=== PATIENT | female | born 1955 | race Caucasian/White ===

== ENCOUNTER 2016-07-16 11:40 | Observation (INO) ==
[2016-07-16] MEDS ORDERED: Lidocaine -MPF 1% 2 ML VIAL ID ONE (12:10)
[2016-07-16] MEDS ORDERED: cefOXitin 2,000 MG in D5% in Water (Mini-Bag+) 100 ML IVPB ONE (12:10)
[2016-07-16] MEDS ORDERED: Ringers Solution, Lactated 1,000 ML IVC SCH ×2 (12:15→14:45)
--- NOTE | 2016-07-16 12:30 | Anesthesia Evaluation PreOp ---
Date of Encounter: 07/16/16 Time of Encounter: 12:28 - Past History Planned Operation: Robotic Lap. 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 HX Other Medical History: GERD, Other (Stomach Ulcer) Anesthesia History: No Prior Anesthetic Complications, Past Anesthesia ( Colonoscopy, EGD) : No Alcohol Use: occasionally Drug use: none Medications and Allergies Pantoprazole Sodium [Protonix] 40 mg PO BID 04/09/16 [History] Venlafaxine XR (24 HR) [Effexor XR] 150 mg PO DAILY 04/09/16 [History] Acetaminophen [Tylenol Arthritis] 650 mg PO BID 07/16/16 [History] Allergies No Known Allergies Allergy (Verified 07/16/16 12:36) - Meds/Allergy Pre-op Review Medications Reviewed: Yes Allergies Reviewed: Yes Beta Blockers on Current Med List: No Anesthesia Results - Labs Laboratory Tests 03/26/16 07/08/16 07/08/16 20:12 09:02 09:02 WBC 5.2 Hgb 12.9 Hct 39.9 Plt Count 239 Sodium 139 Potassium 4.6 H Chloride 104 Carbon Dioxide 23 BUN 25 H Creatinine 0.73 - Imaging EKG: image reviewed (SR) Anesthesia Exam O2 Sat Height 1.63 m Height 1.63 m Weight 82.1 kg Weight 82.1 kg O2 Sat by Pulse Oximetry 99 Vital Signs Temp Pulse Resp BP Pulse Ox 98.3 F 66 16 116/57 99 07/16/16 12:13 07/16/16 12:13 07/16/16 12:13 07/16/16 12:13 07/16/16 12:13 Height: 5'4'' Weight: 181# NPO (# of Hours): > 8 hrs Pain Scale: 0 Pain Scale Used: Numeric (1 - 10) - HEENT Pupil (Motor): Pupils equal, EOMI Mallampati: III Teeth: Normal Oral Opening: Greater than 3 - BOTTOM PRECIPITATOR OPERATOR LOC: Oriented BOTTOM PRECIPITATOR OPERATOR Motor: Normal RUE, Normal LUE, Normal RLE, Normal LLE, Normal Face BOTTOM PRECIPITATOR OPERATOR Sensory: Normal: RUE, LUE, RLE, LLE, Face - Cardiac Rhythm: Regular Murmur: None JVD: No Carotid Bruit: No - Pulmonary Breath Sounds: bilateral Clear Respiratory Effort: Symmetrical Anesthesia Assess/Plan ASA Score: 2 Modified Gilroy Scale for Level of Consciousness: Cooperative, oriented, and tranquil Anesthetic Plan: General Autologous Blood: Yes Monitoring Plan: Standard Monitors Recovery Plan: PACU
--- NOTE | 2016-07-16 12:52 | History & Physical Report ---
Date of Encounter: 07/16/16 Time of Encounter: 12:52 24 Hour HP Update - Instructions Instructions: If the History and Physical is less than 30 days old and was completed prior to A.M. admission and or procedure and has NOT been updated on calendar day of procedure please complete this update prior to performing procedure. - Update Patient reports changes in Medical Condition: No Changes in examination, assessment, or condition: No Changes in Medication: No Preop tests/diagnostics Reviewed: Yes Pre-Op MRSA Screen: Negative Surgery Remains Indicated: Yes Consent for Planned Operative Procedure(s) Verified: Yes - Pre-Operative Checklist Preoperative Checklist Indicated: No Prophylactic Antibiotic Ordered: Yes Home Medications Include Beta Sumanth: No Beta Sumanth Taken Today (Day of Surgery): No Beta Sumanth Taken Yesterday (Day Prior to Surgery): No Is VTE Prophylaxis Indicated?: NO
[2016-07-16] MEDS ORDERED: *HR* Midazolam HCl 2 MG/2 ML VIAL ONE (14:40)
[2016-07-16] MEDS ORDERED: *HR* FentaNYL (PF) 100 MCG/2 ML VIAL ONE ×2 (14:40→15:40)
[2016-07-16] MEDS ORDERED: *HR* Propofol 200 MG/20 ML VIAL IVP ONE (14:40)
[2016-07-16] MEDS ORDERED: Lidocaine -MPF 2% 2 ML VIAL ONE (14:40)
[2016-07-16] MEDS ORDERED: *HR* Rocuronium Bromide 50 MG/5 ML VIAL ONE (14:40)
[2016-07-16] MEDS ORDERED: Dexamethasone 4 MG/ML VIAL ONE (14:40)
[2016-07-16] MEDS ORDERED: Lidocaine -MPF 4% 5 ML AMPUL ONE (14:40)
[2016-07-16] MEDS ORDERED: Ondansetron 4 MG/2 ML VIAL ONE (14:40)
[2016-07-16] MEDS ORDERED: *HR* Succinylcholine 200 MG/10 ML VIAL IVP ONE (14:41)
[2016-07-16] MEDS ORDERED: *HR* Promethazine 25 MG/ML VIAL IVP PRN (14:44)
[2016-07-16] MEDS ORDERED: Ondansetron 4 MG/2 ML VIAL IVP ONE (14:44)
[2016-07-16] MEDS ORDERED: *HR* HYDROmorphone (PF) 1 MG/ML SYRINGE IVP PRN (14:44)
[2016-07-16] MEDS ORDERED: *HR* Labetalol 100 MG/20 ML MDV IVP PRN (14:44)
[2016-07-16] MEDS ORDERED: Ketorolac 30 MG/ML VIAL ONE (14:48)
[2016-07-16] MEDS ORDERED: EPHEDrine 50 MG/ML VIAL ONE (15:13)
[2016-07-16] MEDS ORDERED: Neostigmine Methylsulfate 3 MG/3 ML SYRINGE ONE (15:38)
[2016-07-16] MEDS ORDERED: *HR* Labetalol 20 MG/4 ML SYRINGE IVP ONE (16:31)
[2016-07-16] MEDS ORDERED: *HR* HYDROmorphone 2 MG/ML SYRINGE ONE (16:49)
--- NOTE | 2016-07-16 16:54 | Operative Note ---
Date of procedure: 07/16/16 Pre-op diagnosis: GERD, hiatal hernia Post-op diagnosis: same Procedure: Robot assisted laparoscopic Toupet Anesthesia: MONTSE Surgeon: Vasile Hein Marketing Communication Manager: Indira Redding Condition: stable Disposition: PACU Procedure in Detail: Date of surgery: 07/16/16 After properly identifying the patient, the patient was brought to the operating room and placed in supine position. After proper IV sedation was achieved followed by general endotracheal intubation, the patient's abdomen was prepped and draped in the normal sterile fashion. A timeout was performed noting the patient's name and procedure to be performed. A 15 blade scalpel was used to make an incision 1 cm superior and 1 cm to the left of the umbilicus. A 12 mm Visiport was used to dissect through the subcutaneous tissue , external and internal oblique fascia, and transversalis abdominous fascia until the abdomen was entered. A laparoscopic camera was placed to the port which showed no injury to the intra-abdominal organs upon entry. The abdomen was insufflated with carbon dioxide and the da Eliecer robot was brought towards the operative field after the patient was placed in a reverse Trendelenburg position. The robot was then connected and intra-abdominal visualization determine the best location for the remaining ports. A left upper quadrant 8 mm port, left lateral 8 mm port, right upper quadrant 8 mm port, and right lateral 5 mm port was then placed under direct visualization. The liver was retracted superiorly to allow for visualization of the hiatus. The lesser omentum overlying the hiatus was dissected with a laparoscopic LigaSure. Following this the greater curvature was examined and the omentum was dissected off the greater omentum from the incisura up towards the cardia of the stomach with the laparoscopic vessel sealer. The short gastrics were identified and were also transected with a laparoscopic vessel sealer. The stomach appeared to be somewhat redundant at the hiatus and it was difficult to initially determine the location of the right cassandra and left cassandra of the diaphragm from the stomach. After careful dissection the right cassandra of the diaphragm was identified which allowed for dissection of the adhesions in the hiatus to the proximal stomach. This was performed by blunt dissection and utilization of the vessel sealer. This was carried from the left to the right side of the stomach/hiatus allowing for freeing of the left cassandra of the diaphragm from the surrounding stomach and esophagus. Dissection was carried out circumferentially and posteriorly around the stomach and esophagus as well with blunt dissection. The decision was made to go ahead and approximate the posterior cassandra of the diaphragm after a 50-Portuguese bougie was advanced through the esophagus into the stomach. The cassandra of the diaphragm were approximated with interrupted #1 Ethibond suture 2. The decision was then made to create a 270 degree wrap ( based on the manometry finding showing some mild peristalsis abnormality of the esophagus). The fundus of the stomach was posteriorly wrapped around the GE junction and imbricated to the GE junction with interrupted 2-0 Ethibond sutures on the left and right sides 2. After this was performed the bougie was removed and the left upper quadrant was irrigated copiously with normal saline solution. All ports are then removed from the abdomen after the abdomen was desufflated. The 12 mm subcutaneous tissue was reapproximated with an 0 Vicryl suture and the epidermal and dermal layers for the remaining incisions were closed with 4- 0 Monocryl sutures. Needle, sponge, and instrument counts were correct 2 and the incisions were covered with Steri-Strips and Band-Aids. The patient was aroused from IV sedation, extubated in the operating room without complication, and transported to the recovery room in stable condition.
--- NOTE | 2016-07-16 17:38 | Anesthesia Evaluation Post Op ---
Date of Encounter: 07/16/16 Time of Encounter: 17:37 - Vital Signs Vital Signs: Vital Signs/O2 Sat, Most Current Temp Pulse Resp BP Pulse Ox 97.4 F L 67 18 132/71 93 07/16/16 17:07 07/16/16 17:27 07/16/16 17:27 07/16/16 17:27 07/16/16 17:27 - Lungs Lungs: Clear Ascult./Percussion - Airway Airway: Non-obstructed - Cardiovascular Regular Rate - Mental Status Mental Status: Alert & Oriented, Answers Appropriately - Pain Pain Scale: 4 Pain Scale used: Numeric (1 - 10) - Nausea Vomiting Nausea Vomiting: Not Present - Hydration Hydration: NPO, Has not voided - Discharge PostOp Status: Transfer Patient to floor
[2016-07-16] MEDS: 0.9 % Sodium Chloride 1,000 ML IVC SCH (18:18)
[2016-07-16] MEDS: *HR* HYDROmorphone (PF) 1 MG/ML SYRINGE IVP PRN ×2 (18:19→20:19)
[2016-07-16] MEDS: Ondansetron 4 MG/2 ML VIAL IVP PRN (18:19)
[2016-07-16] MEDS: cefOXitin 1,000 MG in D5% in Water (Mini-Bag+) 100 ML IVPB SCH (22:46)
[2016-07-17] MEDS: *HR* HYDROmorphone (PF) 1 MG/ML SYRINGE IVP PRN ×2 (02:57)
[2016-07-17] MEDS: Ondansetron 4 MG/2 ML VIAL IVP PRN ×2 (02:58→09:16)
[2016-07-17] MEDS: 0.9 % Sodium Chloride 1,000 ML IVC SCH (05:13)
[2016-07-17] MEDS ORDERED: *HR* Promethazine 25 MG/ML VIAL IVP ONE (05:18)
[2016-07-17] MEDS: cefOXitin 1,000 MG in D5% in Water (Mini-Bag+) 100 ML IVPB SCH ×2 (05:57→15:55)
[2016-07-17 06:34] LABS: Basophils % 0.2 %; Hematocrit 35.4 % (35.3-44.9); Hemoglobin 11.8 g/dL (11.5-15.4); Immature Granulocytes % 0.7 % (0-4); Lymphocytes # 0.6 K/mcL (0.6-4.6); Lymphocytes % 4.6 %; Mean Corpuscular HGB Conc 33.3 g/dL (31.6-35.5); Mean Corpuscular Hemoglobin 31.1 pg (28.0-33.3); Mean Corpuscular Volume 93.2 fL (83.0-100.0); Mean Platelet Volume 10.4 fL (9.4-12.4); Monocytes % 7.4 %; Neutrophils # 11.5 K/mcL (1.6-8.9); Platelet Count 202 K/mcL (140-400); Red Cell Distribution Width 13.3 % (11.5-14.5); Segmented Neutrophils % 87.1 %
[2016-07-17 06:45] LABS: BUN/Creatinine Ratio 15 (6-26); Blood Urea Nitrogen 11 mg/dL (7-20); Calcium 9.2 mg/dL (8.6-10.8); Carbon Dioxide 24 mEq/L (19-29); Chloride 105 mEq/L (98-109); Glucose 153 mg/dL (70-99); Osmolality,Calculated 288 (280-300); Potassium 4.1 mEq/L (3.5-4.5); Sodium 138 mEq/L (136-145); eGFR For African Americans > 60 (> 60); eGFR For Non-African Americans > 60 (> 60)
[2016-07-17] MEDS: Venlafaxine XR (24 HR) 150 MG CAP.ER.24H PO SCH (09:18)
[2016-07-17] MEDS: Pantoprazole 40 MG VIAL IVP SCH (09:18)
[2016-07-17] MEDS ORDERED: *HR* Promethazine 25 MG/ML VIAL IVP PRN (09:58)
[2016-07-17] MEDS ORDERED: Ondansetron 4 MG/2 ML VIAL IVP PRN (09:59)
--- NOTE | 2016-07-17 10:03 | General Surgery Progress Note ---
Date of Encounter: 07/17/16 Time of Encounter: 10:00 - Assessment and Plan (1) GERD (gastroesophageal reflux disease) Current Visit: Yes Status: Chronic POD #1 Robot assisted laparoscopic Toupet with Dr. Hein Continue clear liquids as tolerated IV fluids Supportive care/pain control Increase activity as tolerated IS every 1 hour while awake PPI therapy daily Qualifiers: Esophagitis presence: esophagitis presence not specified Qualified Code(s) : K21.9 - Gastro-esophageal reflux disease without esophagitis (2) Hiatal hernia Current Visit: Yes Status: Chronic POD #1 Robot assisted laparoscopic Toupet with Dr. Hein Continue clear liquids as tolerated IV fluids Supportive care/pain control Increase activity as tolerated IS every 1 hour while awake PPI therapy daily (3) Nausea and vomiting Current Visit: Yes Status: Acute Supportive care Alternate Zofran and Phenergan as needed IV fluids Qualifiers: Vomiting type: unspecified Vomiting Intractability: non-intractable Qualified Code(s): R11.2 - Nausea with vomiting, unspecified (4) DVT prophylaxis Current Visit: Yes Status: Acute EPCDs to bilateral lower extremities for DVT prophylaxis Ambulate hallways TID with assistance Subjective Patient reports: still having pain (surgical), voiding w/o difficulty (not recorded, but patient states that she has been voiding without problems), no flatus, no bowel movement, nausea, vomiting, afebrile Objective Vital Signs - Last 8 Hours Temp Pulse Resp BP Pulse Ox 07/17/16 03:26 98.2 F 75 20 106/64 94 07/17/16 02:59 97.6 F 85 20 167/82 96 Intake and Output 07/16/16 07/17/16 07/17/16 23:59 07:59 15:59 Intake Total 100 / 100 1600 / 1600 0 / 0 Output Total 150 / 150 0 / 0 Balance -50 / -50 1600 / 1600 0 / 0 Intake: IV Fluids 100 / 100 1100 / 1100 0.9 % Sodium Chloride 1, 1000 / 1000 000 ML @ 100 mls/hr IVC . Q10H STACEY Rx#:[id number] Mefoxin 1,000 MG In 100 / 100 100 / 100 Dextrose 5% (Minibag+) 100 ML 100 ML @ 200 mls/ hr IVPB Q8H STACEY Rx#: [id number] Oral 500 / 500 0 / 0 Output: Urine 0 / 0 Estimated Blood Loss 150 / 150 Other: Meal Breakfast Percent of Meal Consumed 0% # Voids 1 1 Weight 83.1 kg Patient Weight 07/17/16 23:59 Weight 83.1 kg - General physical appearance well developed, well nourished, moderate distress - Eyes normal ocular movement - ENT normal mucosa, atraumatic, normocephalic - Neck Neck exam: trachea midline - Respiratory normal respiratory effort, clear to auscultation - Cardiovascular Cardiovascular exam: Present: RRR - Abdomen Abdomen: Present: bowel sounds present, soft, distended (mildly), tender ( expected post-operative tenderness) - Incision Incision: Present: clean and dry, intact - Neurologic CN 2-12 grossly intact - Psychiatric oriented to time, oriented to person, oriented to place, speech is normal, memory intact - Labs 07/17/16 06:05 07/17/16 06:05 Diabetes panel 07/17/16 Range/Units 06:05 Sodium 138 (136-145) mEq/L Potassium 4.1 (3.5-4.5) mEq/L Chloride 105 (98-109) mEq/L Carbon Dioxide 24 (19-29) mEq/L BUN 11 (7-20) mg/dL Creatinine 0.72 (0.57-1.11) mg/dL Glucose 153 H (70-99) mg/dL Calcium 9.2 (8.6-10.8) mg/dL Calcium panel 07/17/16 Range/Units 06:05 Calcium 9.2 (8.6-10.8) mg/dL Pituitary panel 07/17/16 Range/Units 06:05 Sodium 138 (136-145) mEq/L Potassium 4.1 (3.5-4.5) mEq/L Chloride 105 (98-109) mEq/L Carbon Dioxide 24 (19-29) mEq/L BUN 11 (7-20) mg/dL Creatinine 0.72 (0.57-1.11) mg/dL Glucose 153 H (70-99) mg/dL Calcium 9.2 (8.6-10.8) mg/dL Adrenal panel 07/17/16 Range/Units 06:05 Sodium 138 (136-145) mEq/L Potassium 4.1 (3.5-4.5) mEq/L Chloride 105 (98-109) mEq/L Carbon Dioxide 24 (19-29) mEq/L BUN 11 (7-20) mg/dL Creatinine 0.72 (0.57-1.11) mg/dL Glucose 153 H (70-99) mg/dL Calcium 9.2 (8.6-10.8) mg/dL - VTE Documentation of Mechanical Device: Intermittent pneumatic compression device Consult Discharge Plan - Plan Referrals: Vasile Hein MD [Partnered Physician] - 07/31/16 9:30 am Madelin Viera MD [Primary Care Provider] - - Attending Attestation I examined this patient and my medical decision-making was reviewed with the TRAILER STEERER/PA/Advanced Practice Nurse/Resident Physician. I agree with the documented findings, disposition and treatment plan as described except to the extent set forth below.
[2016-07-17] MEDS ORDERED: *HR* Morphine 2 MG/ML SYRINGE IVP PRN (12:46)
[2016-07-17] MEDS: *HR* HYDROcodone/Acet 5/325 mg TABLET PO PRN (15:55)
[2016-07-18 03:39] LABS: Basophils % 0.1 %; Eosinophils % 0.1 %; Hematocrit 35.3 % (35.3-44.9); Hemoglobin 11.5 g/dL (11.5-15.4); Immature Granulocytes % 0.5 % (0-4); Lymphocytes % 11.3 %; Mean Corpuscular HGB Conc 32.6 g/dL (31.6-35.5); Mean Corpuscular Hemoglobin 30.3 pg (28.0-33.3); Mean Corpuscular Volume 93.1 fL (83.0-100.0); Mean Platelet Volume 9.8 fL (9.4-12.4); Monocytes % 10.6 %; Neutrophils # 7.1 K/mcL (1.6-8.9); Platelet Count 207 K/mcL (140-400); Red Blood Count 3.79 M/mcL (3.82-4.97); Red Cell Distribution Width 13.5 % (11.5-14.5); Segmented Neutrophils % 77.4 %
[2016-07-18 04:06] LABS: BUN/Creatinine Ratio 14 (6-26); Blood Urea Nitrogen 10 mg/dL (7-20); Calcium 9.1 mg/dL (8.6-10.8); Carbon Dioxide 27 mEq/L (19-29); Chloride 107 mEq/L (98-109); Glucose 106 mg/dL (70-99); Osmolality,Calculated 289 (280-300); Potassium 3.5 mEq/L (3.5-4.5); Sodium 140 mEq/L (136-145); eGFR For African Americans > 60 (> 60); eGFR For Non-African Americans > 60 (> 60)
[2016-07-18] MEDS: Pantoprazole 40 MG VIAL IVP SCH (06:21)
[2016-07-18] MEDS: Venlafaxine XR (24 HR) 150 MG CAP.ER.24H PO SCH (07:29)
[2016-07-18] MEDS: *HR* HYDROcodone/Acet 5/325 mg TABLET PO PRN (07:31)
[2016-07-18 10:27] VITALS: BP 126/80
--- NOTE | 2016-07-18 11:44 | Discharge Summary ---
Date of Encounter: 07/18/16 Time of Encounter: 11:40 - Discharge Diagnosis (1) GERD (gastroesophageal reflux disease) Priority: Primary Status: Chronic Qualifiers: Esophagitis presence: esophagitis presence not specified Qualified Code(s) : K21.9 - Gastro-esophageal reflux disease without esophagitis (2) Hiatal hernia Priority: Primary Status: Chronic - Discharge Medications Prescriptions: HYDROcodone/Acet 10/325 mg [[place] 10-325 mg] 1 tab PO Q6HR PRN #39 tab PRN Reason: Pain Ondansetron [Zofran] 4 mg PO Q6HR PRN #20 tablet PRN Reason: Nausea Home Medications: Pantoprazole Sodium [Protonix] 40 mg PO BID 04/09/16 [History] Venlafaxine XR (24 HR) [Effexor Xr] 150 mg PO DAILY 04/09/16 [History] Acetaminophen [Tylenol Arthritis] 650 mg PO BID 07/16/16 [History] Allergies/Adverse Reactions: Allergies No Known Allergies Allergy (Verified 07/16/16 12:36) General Surgery Exam Initial Vital Signs Temp Pulse Resp BP Pulse Ox 98.3 F 66 16 116/57 99 07/16/16 12:13 07/16/16 12:13 07/16/16 12:13 07/16/16 12:13 07/16/16 12:13 - Eyes PERRL, normal ocular movement - Abdomen Abdomen general surgery: Present: soft, tender (Mild incisional tenderness.) - Neurologic Present: CN 2-12 grossly intact - Psychiatric Psychiatric general surgery: Present: A&Ox3 Date of admission: 07/17/16 16:39 Primary care physician: Madelin Viera Discharging clinician: Vasile Hein Anticipated date of discharge: 07/18/16 - Patient Status Disposition: Home, Self-Care Condition: Good Overall status at discharge: patient is progressing back to baseline - Discharge Instructions Follow Up With: Vasile Hein MD [Partnered Physician] - 07/31/16 9:30 am - Diet and Activity Diet: other (Clears) - Hospital Course Hospital course: Ms. Landeros is a 61 year old female history of GERD who underwent a robot- assisted Toupet duplication on 07/16/2016 without difficult. On the first postoperative day she underwent an upper GI which showed no evidence of a leak and flow into the stomach and small bowel. The cause of headache and nausea and vomiting as well as pain she stated an additional day for observation. She was able to tolerate clears without any further nausea or vomiting and was able to ambulate without difficulty. Due to her overall improvement she was discharged home on 07/18/2016 with instructions to follow-up in 2 weeks. Time spent discussing smoking cessation with patient: 3 to 10 minutes - Time Spent with Patient Total time spent providing and/or coordinating discharge services: Less than 30 minutes Specific discharge activities: No heavy lifting greater than 15lbs for two weeks. Labs on day of discharge: Labs from last 24 hours 07/18/16 07/18/16 03:31 03:31 WBC 9.2 RBC 3.79 L Hgb 11.5 Hct 35.3 MCV 93.1 MCH 30.3 MCHC 32.6 RDW 13.5 Plt Count 207 MPV 9.8 Immature Gran % 0.5 Seg Neutrophils % 77.4 Lymphocytes % 11.3 Monocytes % 10.6 Eosinophils % 0.1 Basophils % 0.1 Neutrophils # 7.1 Lymphocytes # 1.0 Monocytes # 1.0 Eosinophils # 0.0 Basophils # 0.0 Sodium 140 Potassium 3.5 Chloride 107 Carbon Dioxide 27 BUN 10 Creatinine 0.69 Est GFR ( Amer) > 60 Est GFR (Non-Af Amer) > 60 BUN/Creatinine Ratio 14 Glucose 106 H Calculated Osmolality 289 Calcium 9.1 - Impressions ITS Impressions Upper GI Series 07/17/16 06:55 IMPRESSION: 1. No extravasated oral contrast to suggest leak. 2. Delayed passage through the esophagogastric junction may represent postsurgical edema. 3. There appears to be a distal esophageal diverticulum. D/ / Lc Jaramillo MD / Lc Jaramillo MD Interpreting Provider: Lc Jaramillo MD
== END 2016-07-18 13:19 | disposition home or self-care (01) ==
LOC: SAMDAY 11:40 → 3ANU 11:40 → SAMDAY 07-17 14:42 → 3ANU 07-17 15:39
PROVIDERS: ADMIT Surgery; ATTEND Surgery

== ENCOUNTER 2016-08-15 05:22 | Observation (INO) ==
[2016-08-15] MEDS ORDERED: 0.9 % Sodium Chloride 1,000 ML IVC ONE (05:46)
[2016-08-15] MEDS ORDERED: Ketorolac 30 MG/ML VIAL IVP ONE (05:46)
--- NOTE | 2016-08-15 06:06 | Emergency Department Note ---
Disposition Clinical Impression: Abdominal pain Qualifiers: Abdominal location: right lower quadrant Qualified Code(s): R10.31 - Right lower quadrant pain Disposition: Still a Patient Condition: Undetermined Referrals: NO,PCP [Primary Care Provider] - Forms: Work/School Release, ED Satisfaction Letter Abdominal Pain HPI - General Chief Complaint: ED General Medical Stated Complaint: right groin pain Time Seen by Provider: 08/15/16 05:39 Source: patient Mode of arrival: private vehicle Limitations: no limitations Nursing Notes Reviewed: Yes Vital Signs Reviewed: Yes - History of Present Illness Pt Subjective Complaint: abdominal pain Onset (ago): day(s) (2) Consistency: constant Location: RLQ Pain Severity: severe Pain Scale: 10 Quality: sharp Radiation: none Migration to: no migration Improves with: nothing Worsens with: other (palpation) Context: recent surgery/procedure (Catracho Fundoplication 4 weeks ago - no complications) Associated symptoms: Denies: nausea, vomiting, diarrhea, fever, chills, constipation, dysuria, hematemesis, hematochezia, melena, hematuria, anorexia, syncope, other Treatments prior to arrival: none - Related Data Home Medications Medication Instructions Recorded Confirmed Pantoprazole Sodium [Protonix] 40 mg PO BID 04/09/16 07/16/16 Venlafaxine XR (24 HR) [Effexor Xr] 150 mg PO DAILY 04/09/16 07/16/16 Acetaminophen [Tylenol Arthritis] 650 mg PO BID 07/16/16 07/16/16 Previous Rx's Medication Instructions Recorded HYDROcodone/Acet 10/325 mg [[place] 1 tab PO Q6HR PRN #39 tab 07/18/16 10-325 mg] Ondansetron ODT [Zofran ODT] 4 mg SL Q6HR PRN #20 tab.rapdis 07/18/16 Allergies Allergy/AdvReac Type Severity Reaction Status Date / Time No Known Allergies Allergy Verified 08/15/16 05:31 All systems ED: reviewed and negative except as stated. Constitutional: Denies: fever, chills, weakness, night sweats Cardiovascular: Denies: chest pain, palpitations, dyspnea on exertion Gastrointestinal: Reports: as per HPI, abdominal pain. Denies: nausea, vomiting , diarrhea, constipation, hematemesis, melena, hematochezia Genitourinary: Denies: urgency, dysuria, frequency, hematuria, discharge Musculoskeletal: Denies: back pain, joint swelling, arthralgia Integumentary: Denies: rash, lesions, pruritus Neurological: Denies: headache Hematological/Lymphatic: Denies: easy bleeding, easy bruising Abdominal Pain PMH - Past Medical History Medical history: Reports: GERD Female Surgical History: Reports: other FINISHER ACCORDION history: Reports: no FINISHER ACCORDION history Psychiatric history: Reports: depression - Social History Smoking status: Never smoker Alcohol use: Reports: none Drug use: Reports: none Physical Exam - General Limitations: no limitations General appearance: alert, in no apparent distress - Head Head exam: atraumatic, normocephalic, normal inspection - Eye Eye exam: Present: normal appearance, PERRL. Absent: scleral icterus, conjunctival injection, periorbital swelling - ENT ENT exam: mucous membranes moist - Neck Neck exam: Present: normal inspection, full ROM, trachea midline - Chest Chest inspection: Present: normal inspection, symmetric chest wall rise - Respiratory Respiratory exam: Present: normal lung sounds bilaterally. Absent: respiratory distress, wheezes - Cardiovascular Cardiovascular exam: Present: regular rate, normal rhythm, normal heart sounds - Abdominal Exam Abdominal exam: Present: soft, tenderness, normal bowel sounds, tenderness at McBurney's Point, scar. Absent: distention, guarding, rebound, rigidity, organomegaly, mass, pulsatile mass, hernia Abdominal tenderness: Present: RLQ, moderate - Extremities Exam Extremities exam: Present: normal inspection, full ROM. Absent: pedal edema - Back Exam Back exam: Present: normal inspection. Absent: CVA tenderness (R), CVA tenderness (L) - Neurological Exam Neurological exam: Present: alert, oriented X3, CN II-XII intact, normal gait - Psychiatric Psychiatric exam: Present: normal affect, normal mood - Skin Skin exam: Present: warm, dry, intact, normal color Course Course Narrative: Patient presents from home by herself for evaluation of right lower quadrant abdominal pain. It started abruptly two days ago while she was sitting down resting. It has been constant, unchanged in intensity, since the acute onset. She has had no nausea, vomiting, diarrhea or constipation and she also denies any urinary complaints. She had a Guido fundoplication four weeks ago - without complication. She was released to go back to work. 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 She does not recall any recent injuries or painful lifting events. On exam she appears uncomfortable but nontoxic. She is non-tearful. She has tenderness to palpation at McBurney's point but also has tenderness in the right adnexa. There is no guarding, negative Rovsing sign, no rebound tenderness, no peritoneal signs. As she has driven herself here and wants to be able to drive herself home if possible, nonsedating pain medications have been ordered. Labs and imaging have been ordered as well. She has been seen by Dr. Turcios. He has made some changes to the initial orders after seeing the patient. The case was also discussed with Aaron Magana PA-C. He will assume care of the patient, in conjunction with Dr. Turcios. Vital Signs Temperature 97.5 F L 08/15/16 05:27 Pulse Rate 74 08/15/16 05:27 Respiratory Rate 16 08/15/16 05:27 Blood Pressure 145/85 08/15/16 05:27 O2 Sat by Pulse Oximetry 96 08/15/16 05:27 Temperature 97.5 F L 08/15/16 05:27 Pulse Rate 74 08/15/16 05:27 Respiratory Rate 16 08/15/16 05:27 Blood Pressure 145/85 08/15/16 05:27 O2 Sat by Pulse Oximetry 96 08/15/16 05:27 Oxygen Delivery Oxygen Delivery Room Air
[2016-08-15 06:13] LABS: Basophils % 0.5 %; Eosinophils # 0.5 K/mcL (0.0-0.6); Eosinophils % 5.5 %; Hematocrit 39.5 % (35.3-44.9); Hemoglobin 13.1 g/dL (11.5-15.4); Immature Granulocytes % 0.4 % (0-4); Lymphocytes # 1.2 K/mcL (0.6-4.6); Lymphocytes % 14.6 %; Mean Corpuscular HGB Conc 33.2 g/dL (31.6-35.5); Mean Corpuscular Hemoglobin 30.3 pg (28.0-33.3); Mean Corpuscular Volume 91.4 fL (83.0-100.0); Mean Platelet Volume 10.1 fL (9.4-12.4); Monocytes # 0.7 K/mcL (0.0-1.3); Monocytes % 8.5 %; Platelet Count 230 K/mcL (140-400); Red Blood Count 4.32 M/mcL (3.82-4.97); Red Cell Distribution Width 12.9 % (11.5-14.5); Segmented Neutrophils % 70.5 %
[2016-08-15 06:37] LABS: Alanine Aminotransferase 11 Units/L (0-55); Albumin 4.3 g/dL (3.5-5.0); Albumin/Globulin Ratio 1.5 (1.1-2.2); Alkaline Phosphatase 65 Units/L (38-126); Aspartate Amino Transferase 15 Units/L (5-34); BUN/Creatinine Ratio 12 (6-26); Bilirubin,Direct 0.1 mg/dL (0.0-0.5); Bilirubin,Indirect 0.2 mg/dL (0.0-1.2); Bilirubin,Total 0.3 mg/dL (0.2-1.2); Blood Urea Nitrogen 9 mg/dL (7-20); Calcium 9.2 mg/dL (8.6-10.8); Carbon Dioxide 25 mEq/L (19-29); Chloride 107 mEq/L (98-109); Globulin 2.9 g/dL (2.4-3.5); Glucose 102 mg/dL (70-99); Osmolality,Calculated 289 (280-300); Potassium 3.7 mEq/L (3.5-4.5); Sodium 140 mEq/L (136-145); Total Protein 7.2 g/dL (6.0-8.3); eGFR For African Americans > 60 (> 60); eGFR For Non-African Americans > 60 (> 60)
[2016-08-15 07:59] LABS: Bilirubin,Urine Negative (Negative); Blood,Urine Trace (Negative); Clarity,Urine Cloudy (Clear); Color,Urine Yellow (Yellow); Glucose,Urine (UA) Normal (Normal); Ketones,Urine Negative (Negative); Leukocyte Esterase,Urine Trace (Negative); Nitrite,Urine Negative (Negative); Protein,Urine Negative (Neg-Trace); Specific Gravity,Urine 1.012 (1.010-1.025); Urobilinogen,Urine Normal (Normal)
[2016-08-15 08:15] LABS: RBC,Urine 0-3 per hpf (0-3); Squamous Epithelial Cell,Urine Few per lpf (None-Few); WBC,Urine 0-3 per hpf (0-3)
[2016-08-15 08:16] LABS: Bacteria,Urine Few per hpf (None-Few)
[2016-08-15] MEDS ORDERED: *HR* Morphine 2 MG/ML SYRINGE IVP ONE (08:48)
[2016-08-15] MEDS ORDERED: Ondansetron 4 MG/2 ML VIAL IVP ONE (08:49)
--- NOTE | 2016-08-15 09:02 | Emergency Department Note ---
Disposition Clinical Impression: Intussusception Abdominal pain Qualifiers: Abdominal location: right lower quadrant Qualified Code(s): R10.31 - Right lower quadrant pain Spleen hematoma Qualifiers: Qualified Code(s): S36.029A - Disposition: Admitted As Inpatient Condition: Fair Time of Disposition: 09:11 Abdominal Pain HPI - General Chief Complaint: ED General Medical Stated Complaint: right groin pain Time Seen by Provider: 08/15/16 05:39 Source: patient Mode of arrival: private vehicle Limitations: no limitations Nursing Notes Reviewed: Yes Vital Signs Reviewed: Yes - History of Present Illness Pt Subjective Complaint: abdominal pain Location: RLQ Pain Severity: severe Pain Scale: 8 Quality: sharp Migration to: no migration Improves with: nothing Worsens with: other (palpation) Context: recent surgery/procedure (Catracho Fundoplication 4 weeks ago - no complications) Associated symptoms: Denies: nausea, vomiting, diarrhea, fever, chills, constipation, dysuria, hematemesis, hematochezia, melena, hematuria, anorexia, syncope, other - Related Data Home Medications Medication Instructions Recorded Confirmed Pantoprazole Sodium [Protonix] 40 mg PO BID 04/09/16 08/15/16 Venlafaxine XR (24 HR) [Effexor Xr] 150 mg PO DAILY 04/09/16 08/15/16 Acetaminophen [Tylenol Arthritis] 650 mg PO BID 07/16/16 08/15/16 Previous Rx's Medication Instructions Recorded HYDROcodone/Acet 10/325 mg [[place] 1 tab PO Q6HR PRN #39 tab 07/18/16 10-325 mg] Allergies Allergy/AdvReac Type Severity Reaction Status Date / Time No Known Allergies Allergy Verified 08/15/16 05:31 Constitutional: Denies: fever, chills, weakness, night sweats Cardiovascular: Denies: chest pain, palpitations, dyspnea on exertion Gastrointestinal: Reports: as per HPI, abdominal pain. 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 Johnson. - Consultations Consultation #1: I had Dr. Hein paged to discuss the results of the CT of the abdomen and pelvis, he requested that I page the on-call Surgeon. Dr. Rutledge requested that the patient be admitted to Medicine and that he would consult regarding the care of this patient. Time: 09:10 Vital Signs Temperature 97.5 F L 08/15/16 05:27 Pulse Rate 74 08/15/16 05:27 Respiratory Rate 16 08/15/16 05:27 Blood Pressure 145/85 08/15/16 05:27 O2 Sat by Pulse Oximetry 96 08/15/16 05:27 Temperature 97.5 F L 08/15/16 11:17 Pulse Rate 73 08/15/16 11:17 Respiratory Rate 16 08/15/16 11:17 Blood Pressure 154/70 08/15/16 11:17 O2 Sat by Pulse Oximetry 99 08/15/16 11:38 Oxygen Delivery Oxygen Delivery Room Air Abdominal Pain - Lab Data Lab results reviewed: Yes I reviewed the patient's lab results. Result diagrams: 08/15/16 06:00 08/15/16 06:00 Lab Results 08/15/16 08/15/16 08/15/16 Range/Units 06:00 06:00 06:00 WBC 8.5 (4.3-11.1) K/mcL RBC 4.32 (3.82-4.97) M/mcL Hgb 13.1 (11.5-15.4) g/dL Hct 39.5 (35.3-44.9) % MCV 91.4 (83.0-100.0) fL MCH 30.3 (28.0-33.3) pg MCHC 33.2 (31.6-35.5) g/dL RDW 12.9 (11.5-14.5) % Plt Count 230 (140-400) K/mcL MPV 10.1 (9.4-12.4) fL Immature Gran % 0.4 (0-4) % Seg Neutrophils % 70.5 % Lymphocytes % 14.6 % Monocytes % 8.5 % Eosinophils % 5.5 % Basophils % 0.5 % Neutrophils # 6.0 (1.6-8.9) K/mcL Lymphocytes # 1.2 (0.6-4.6) K/mcL Monocytes # 0.7 (0.0-1.3) K/mcL Eosinophils # 0.5 (0.0-0.6) K/mcL Basophils # 0.0 (0.0-0.2) K/mcL PT (9.4-12.1) Seconds INR APTT (26.0-36.0) Seconds Sodium 140 (136-145) mEq/L Potassium 3.7 (3.5-4.5) mEq/L Chloride 107 (98-109) mEq/L Carbon Dioxide 25 (19-29) mEq/L BUN 9 (7-20) mg/dL Creatinine 0.76 (0.57-1.11) mg/dL Est GFR ( Amer) > 60 (> 60) Est GFR (Non-Af Amer) > 60 (> 60) BUN/Creatinine Ratio 12 (6-26) Glucose 102 H (70-99) mg/dL Calculated Osmolality 289 (280-300) Lactic Acid 1.0 (0.5-2.2) mmol/L Calcium 9.2 (8.6-10.8) mg/dL Total Bilirubin 0.3 (0.2-1.2) mg/dL Direct Bilirubin 0.1 (0.0-0.5) mg/dL Indirect Bilirubin 0.2 (0.0-1.2) mg/dL AST 15 (5-34) Units/L ALT 11 (0-55) Units/L Alkaline Phosphatase 65 (38-126) Units/L Serum Total Protein 7.2 (6.0-8.3) g/dL Albumin 4.3 (3.5-5.0) g/dL Globulin 2.9 (2.4-3.5) g/dL Albumin/Globulin Ratio 1.5 (1.1-2.2) Urine Color (Yellow) Urine Clarity (Clear) Urine pH (5.0-8.0) pH Units Ur Specific [place] (1.010-1.025) Urine Protein (Neg-Trace) mg/dL Urine Glucose (UA) (Normal) mg/dL Urine Ketones (Negative) mg/dL Urine Blood (Negative) Urine Nitrite (Negative) Urine Bilirubin (Negative) Urine Urobilinogen (Normal) mg/dL Ur Leukocyte Esterase (Negative) Urine Microscopic RBC (0-3) per hpf Urine Microscopic WBC (0-3) per hpf Ur Squamous Epith Cells (None-Few) per lpf Urine Bacteria (None-Few) per hpf Ur Culture Indicated? (NO) 08/15/16 08/15/16 Range/Units 07:46 09:07 WBC (4.3-11.1) K/mcL RBC (3.82-4.97) M/mcL Hgb (11.5-15.4) g/dL Hct (35.3-44.9) % MCV (83.0-100.0) fL MCH (28.0-33.3) pg MCHC (31.6-35.5) g/dL RDW (11.5-14.5) % Plt Count (140-400) K/mcL MPV (9.4-12.4) fL Immature Gran % (0-4) % Seg Neutrophils % % Lymphocytes % % Monocytes % % Eosinophils % % Basophils % % Neutrophils # (1.6-8.9) K/mcL Lymphocytes # (0.6-4.6) K/mcL Monocytes # (0.0-1.3) K/mcL Eosinophils # (0.0-0.6) K/mcL Basophils # (0.0-0.2) K/mcL PT 10.8 (9.4-12.1) Seconds INR 1.0 APTT 29.0 (26.0-36.0) Seconds Sodium (136-145) mEq/L Potassium (3.5-4.5) mEq/L Chloride (98-109) mEq/L Carbon Dioxide (19-29) mEq/L BUN (7-20) mg/dL Creatinine (0.57-1.11) mg/dL Est GFR ( Amer) (> 60) Est GFR (Non-Af Amer) (> 60) BUN/Creatinine Ratio (6-26) Glucose (70-99) mg/dL Calculated Osmolality (280-300) Lactic Acid (0.5-2.2) mmol/L Calcium (8.6-10.8) mg/dL Total Bilirubin (0.2-1.2) mg/dL Direct Bilirubin (0.0-0.5) mg/dL Indirect Bilirubin (0.0-1.2) mg/dL AST (5-34) Units/L ALT (0-55) Units/L Alkaline Phosphatase (38-126) Units/L Serum Total Protein (6.0-8.3) g/dL Albumin (3.5-5.0) g/dL Globulin (2.4-3.5) g/dL Albumin/Globulin Ratio (1.1-2.2) Urine Color Yellow (Yellow) Urine Clarity Cloudy A (Clear) Urine pH 6.0 (5.0-8.0) pH Units Ur Specific [place] 1.012 (1.010-1.025) Urine Protein Negative (Neg-Trace) mg/dL Urine Glucose (UA) Normal (Normal) mg/dL Urine Ketones Negative (Negative) mg/dL Urine Blood Trace H (Negative) Urine Nitrite Negative (Negative) Urine Bilirubin Negative (Negative) Urine Urobilinogen Normal (Normal) mg/dL Ur Leukocyte Esterase Trace H (Negative) Urine Microscopic RBC 0-3 (0-3) per hpf Urine Microscopic WBC 0-3 (0-3) per hpf Ur Squamous Epith Cells Few (None-Few) per lpf Urine Bacteria Few (None-Few) per hpf Ur Culture Indicated? YES A (NO) - Radiology Data Radiology results reviewed: Yes I reviewed the patient's radiology results.
[2016-08-15 09:37] LABS: Prothrombin Time 10.8 Seconds (9.4-12.1)
[2016-08-15] MEDS ORDERED: Ondansetron 4 MG/2 ML VIAL IVP PRN (12:24)
--- NOTE | 2016-08-15 12:31 | Internal Med History&Physical ---
Date of Encounter: 08/15/16 Time of Encounter: 12:26 Assessment and Plan (1) GERD (gastroesophageal reflux disease) Current visit: No Status: Chronic Continue protonix. Qualifiers: Esophagitis presence: esophagitis presence not specified Qualified Code(s) : K21.9 - Gastro-esophageal reflux disease without esophagitis (2) DVT prophylaxis Current visit: No Status: Acute SED boots. Patient has what looks like a splenic hematoma on CT scan. Hold any antiplatelet or anticoagulant medications. (3) Intussusception Current visit: Yes Status: Acute No evidence of bowel obstruction. I am not sure this is a radiological artifact or not. Would ask for surgery team input and appreciate the recommendations. For now keep NPO except for ice chips. hydrate. (4) Spleen hematoma Current visit: Yes Status: Acute She denies any trauma that she can recall. She is not in any antiplatelet or anticoagulant medications hemoglobin and hematite Glenn are stable follow H&H. Appreciation surgery team input. Qualifiers: Qualified Code(s): S36.029A - Unspecified contusion of spleen, initial encounter Internal Medicine - H&P: HPI Chief complaint: abdominal pain History of present illness: Ms. Landeros is a 61 year old female who had a Guido Fundoplication on 2016 and has been in her usual state of health till 2 days ago when she started experiencing abdominal pain. Patient describes pain across the lower abdomen, crampy in nature. She is passing gas. her last bowel movement was 2 days ago. She denies any vomiting. Intermittent nausea. Denies any fevers or chills. No hematemesis or melena. She denies any abdominal distention. CT scan of the abdomen shows questionable intussusception but no evidence of bowel obstruction. There is also a splenic hematoma. She denies any trauma to the splenic area. She is not in any antiplatelet or anticoagulant medications. Past Med Surg Social Fam HX - Past Medical History Medical history: GERD Psychiatric history: depression - Social History Smoking Status: Former smoker Smokeless Tobacco Status: No Alcohol use: none Drug use: none Internal Medicine - H&P: Meds Pantoprazole Sodium [Protonix] 40 mg PO BID 04/09/16 [History] Venlafaxine XR (24 HR) [Effexor Xr] 150 mg PO DAILY 04/09/16 [History] Acetaminophen [Tylenol Arthritis] 650 mg PO BID 07/16/16 [History] HYDROcodone/Acet 10/325 mg [[place] 10-325 mg] 1 tab PO Q6HR PRN #39 tab 07/18/16 [Rx] Allergies No Known Allergies Allergy (Verified 08/15/16 05:31) All Systems PM: A 10-system review of systems was performed and is negative for pertinent findings except as documented above in the HPI. Review of systems: 10 point review of systems is negative except for HPI - Constitutional Vitals: Temp Pulse Resp BP Pulse Ox 97.5 F L 73 16 154/70 99 08/15/16 11:17 08/15/16 11:17 08/15/16 11:17 08/15/16 11:17 08/15/16 11:38 Exam: Gen.: patient is alert oriented times 3 not in distress cardiac: Normal S1, S2, no additional sounds or murmurs chest: Clear to auscultation Abdomen: Soft, Non tender non distended. No rebound lower extremity Lax calf muscles no swelling Neuro: no focal deficits Internal Med - H&P Results - Labs CBC & Chem 7: 08/15/16 06:00 08/15/16 06:00
[2016-08-15] MEDS: *HR* Morphine 2 MG/ML SYRINGE IVP PRN ×3 (13:08→21:46)
[2016-08-15] MEDS: D5% in 0.9% NACL 1,000 ML IVC SCH (14:47)
[2016-08-15] MEDS ORDERED: *HR* Promethazine 25 MG/ML VIAL IVP PRN ×2 (16:57→19:14)
--- NOTE | 2016-08-15 19:43 | General Surgery Consult Note ---
Date of Encounter: 08/15/16 Time of Encounter: 18:55 History of Present Illness Consult date: 08/15/16 Requesting physician: Omari Magana History of present illness: 61-year-old female admitted after presenting to the emergency department with approximately a 48 hour history right lower quadrant/right groin pain. The patient describes severe pain with intermittent nausea but no vomiting. On presentation to the emergency department the patient was in significant distress. CT abdomen/pelvis demonstrated findings suggestive of proximal small bowel intussusception located at the junction of the duodenum and jejunum. A small subcapsular splenic hematoma was also described. I was able to personally review the CT with [facility]. there was no "leading edge"related to this described intussusception nor was there any evidence of an associated SBO. The findings may be incidental or artifact rather than truly present. No inguinal or femoral hernias, the appendix was not visualized but no pericecal inflammation or stranding was noted. The patient has approximately 4 weeks status post robot-assisted laparoscopic Toupet anti reflux procedure per Dr Vasile Hein (07/16/2016). This recent procedure is the likely cause of the subcapsular splenic hematoma evident on recent CT. past medical history: GERD, depression Surgical history: no other surgery acknowledged or described Allergies: NKDA Medications: pantoprazole 40 mg by mouth twice a Venlafaxine XR 150 mg by mouth daily Tylenol arthritis 650 mg by mouth Social history: patient , lives with spouse; quit smoking approx 10 years ago - admits to 2 PPD x 30 years; consumes alcohol rarely, denies any illicit drug use Physical examination: age-appropriate woman in some distress related to persist right groin/right lower quadrant abdominal pain The patient has been afebrile since admission until now - the patient is currently febrile to 100.2; pulse 88, respirations 15, BP 161/90 skin: Warm, without obvious jaundice Lungs: Clear to auscultation; no obvious abdominal pain with deep inspiration cardiac: Regular rate, no appreciable murmurs Abdomen: Soft, mminimal tenderness in the right lower quadrant/groin without discernible masses or fullness. active bowel sounds. Extremities - no obvious clubbing, cyanosis, or edema Laboratories: white count 8.5; hemoglobin 13.1 with hematocrit 39.5 ( historically H&H approx 11.5/35.3) platelet count 230,000; differential within normal limits pT/INR within normal limits Electrolytes, BUN, creatinine, LFTs within normal limits urinalysis notable for trace urine blood, trace leukocyte esterase; 0-3 red cells per high-powered field; 0-3 white cells per high-powered field Impression: 61-year-old, approx 4 weeks s/p Robot assisted laparoscopic Toupet procedure presents to [facility] with approx 48 hour history RLQ/right groin pain. CT suggestive of intussception of small bowel at the junction of the duodenum and jejunum. A small subcapsular splenic hematoma is also noted. These findings do not correlate to the patient's complaints of RLQ or right groin pain. Low grade fever noted this evening with no distinct etiology identified. Possible viral etiology but should consider pulmonary source. Recommendations: SBFT in AM allow clear liquids as long as no recurrent N/V I will follow with you and make further recommendations as the patient's condition and response to tx dictates. Past Med Surg Social Fam HX - Past Medical History Medical history: GERD Psychiatric history: depression - Social History Smoking Status: Never smoker Smokeless Tobacco Status: No Alcohol use: none Drug use: none Medications and Allergies Pantoprazole Sodium [Protonix] 40 mg PO BID 04/09/16 [History] Venlafaxine XR (24 HR) [Effexor Xr] 150 mg PO DAILY 04/09/16 [History] Acetaminophen [Tylenol Arthritis] 650 mg PO BID 07/16/16 [History] HYDROcodone/Acet 10/325 mg [[place] 10-325 mg] 1 tab PO Q6HR PRN #39 tab 07/18/16 [Rx] Allergies No Known Allergies Allergy (Verified 08/15/16 05:31) Review of Systems All systems PM: A 10-system review of systems was performed and is negative for pertinent findings except as documented above in the HPI. General Surgery Exam Initial Vital Signs Temp Pulse Resp BP Pulse Ox 97.5 F L 74 16 145/85 96 08/15/16 05:27 08/15/16 05:27 08/15/16 05:27 08/15/16 05:27 08/15/16 05:27 Exam Initial Vital Signs Temp Pulse Resp BP Pulse Ox 97.5 F L 74 16 145/85 96 08/15/16 05:27 08/15/16 05:27 08/15/16 05:27 08/15/16 05:27 08/15/16 05:27 Results - Labs 08/15/16 06:00 08/15/16 06:00 Abnormal lab results Glucose 102 mg/dL (70-99) H 08/15/16 06:00 Urine Clarity Cloudy (Clear) A 08/15/16 07:46 Urine Blood Trace (Negative) H 08/15/16 07:46 Ur Leukocyte Esterase Trace (Negative) H 08/15/16 07:46 Ur Culture Indicated? YES (NO) A 08/15/16 07:46 All other labs normal. Consult Discharge Plan - Plan Referrals: Madelin Viera MD [Primary Care Provider] -
[2016-08-16] MEDS: Ondansetron 4 MG/2 ML VIAL IVP PRN ×2 (00:38→20:30)
[2016-08-16] MEDS: D5% in 0.9% NACL 1,000 ML IVC SCH ×2 (04:01→23:00)
[2016-08-16 06:12] LABS: Basophils % 0.1 %; Hematocrit 39.5 % (35.3-44.9); Hemoglobin 13.2 g/dL (11.5-15.4); Immature Granulocytes % 0.4 % (0-4); Lymphocytes # 0.7 K/mcL (0.6-4.6); Lymphocytes % 9.1 %; Mean Corpuscular HGB Conc 33.4 g/dL (31.6-35.5); Mean Corpuscular Hemoglobin 30.8 pg (28.0-33.3); Mean Corpuscular Volume 92.1 fL (83.0-100.0); Mean Platelet Volume 10.1 fL (9.4-12.4); Monocytes # 0.8 K/mcL (0.0-1.3); Monocytes % 10.8 %; Neutrophils # 5.8 K/mcL (1.6-8.9); Platelet Count 214 K/mcL (140-400); Red Blood Count 4.29 M/mcL (3.82-4.97); Segmented Neutrophils % 79.6 %
[2016-08-16 06:28] LABS: BUN/Creatinine Ratio 6 (6-26); C-Reactive Protein 48 mg/L (Less than 5); Calcium 9.3 mg/dL (8.6-10.8); Carbon Dioxide 24 mEq/L (19-29); Chloride 106 mEq/L (98-109); Glucose 137 mg/dL (70-99); Osmolality,Calculated 289 (280-300); Potassium 3.7 mEq/L (3.5-4.5); Sodium 140 mEq/L (136-145); eGFR For African Americans > 60 (> 60); eGFR For Non-African Americans > 60 (> 60)
[2016-08-16 06:29] LABS: Blood Urea Nitrogen 4 mg/dL (7-20)
--- NOTE | 2016-08-16 10:39 | Internal Med Progress Note ---
Date of Encounter: 08/16/16 Time of Encounter: 10:37 - Assessment and plan (1) GERD (gastroesophageal reflux disease) Current Visit: No Status: Chronic Assessment and plan: Protonix. Qualifiers: Esophagitis presence: esophagitis presence not specified Qualified Code(s) : K21.9 - Gastro-esophageal reflux disease without esophagitis (2) DVT prophylaxis Current Visit: No Status: Acute Assessment and plan: SCD was for now because of splenic hematoma. (3) Intussusception Current Visit: Yes Status: Acute Assessment and plan: Likely artifactual. Small bowel follow-through performed today shows no evidence of bowel obstruction. Appreciate surgery input. (4) Spleen hematoma Current Visit: Yes Status: Acute Assessment and plan: Likely related to recent surgery. Hemoglobin and hematocrit or stable. Vitals are stable. Conservative management Qualifiers: Qualified Code(s): S36.029A - Unspecified contusion of spleen, initial encounter (5) Fever Current Visit: Yes Status: Acute Assessment and plan: Maybe related to acute bronchitis. She has an 80 pack your smoking history and has some productive cough. Two view chest x-ray will be performed to look for pneumonia. Qualifiers: Qualified Code(s): R50.9 - Fever, unspecified - Subjective Interval history: Patient seen and examined. Patient had fever spike yesterday up 200.2. She has scant productive cough. She is a 80 pack year smoking history. Abdominal pain improved. No diarrhea. She is passing gas has not had any bowel movements yet. No headache neck pain or stiffness. - Constitutional Vitals: Temp Pulse Resp BP Pulse Ox 99.1 F 93 18 161/81 97 08/16/16 07:18 08/16/16 07:18 08/16/16 07:18 08/16/16 07:18 08/16/16 07:18 Exam: Gen.: patient is alert oriented times 3 not in distress. Cardiac: normal S1 S2 no additional sounds or murmurs chest: fair air entry. coarse breath sounds. no active wheezing. No crackles or bronchial breathing. abdomen: soft nontender nondistended normal bowel sounds neuro: no focal deficit Internal Medicine: Result - Labs CBC & Chem 7: 08/16/16 05:33 08/16/16 05:33 Labs: Short CBC 08/16/16 Range/Units 05:33 WBC 7.3 (4.3-11.1) K/mcL Hgb 13.2 (11.5-15.4) g/dL Hct 39.5 (35.3-44.9) % Plt Count 214 (140-400) K/mcL Neutrophils # 5.8 (1.6-8.9) K/mcL BMP 08/16/16 05:33 Sodium 140 Potassium 3.7 Chloride 106 Carbon Dioxide 24 BUN 4 L Creatinine 0.70 Glucose 137 H Calcium 9.3 - ABG Interpretation ABG results: PT/INR, D-dimer PT 10.8 Seconds (9.4-12.1) 08/15/16 09:07 - Impressions Impressions Small Bowel X-Ray 08/16/16 00:01 IMPRESSION: No intussusception identified on small bowel follow-through, which was carried out to the distal small bowel. The visualized mucosal folds appear unremarkable. D/ / Kurt Urbina MD / Kurt Urbina MD Interpreting Provider: Kurt Urbina MD Chest X-Ray 08/16/16 19:44 IMPRESSION: Negative portable study. D/ / Jessica Hernandez Cha, MD / Jessica Hernandez Cha, MD Interpreting Provider: Jessica Hernandez Cha, MD Consult Discharge Plan - Plan Referrals: Madelin Viera MD [Primary Care Provider] -
[2016-08-16] MEDS: Levofloxacin 750 MG/150 ML 750 MG/150 ML BAG IVPB SCH (10:52)
[2016-08-16] MEDS: Venlafaxine XR (24 HR) 150 MG CAP.ER.24H PO SCH (10:53)
--- NOTE | 2016-08-16 13:56 | General Surgery Progress Note ---
Date of Encounter: 08/16/16 Time of Encounter: 13:20 Subjective Patient reports: feels better, pain is less Narrative: General Surgery: patient feeling better, indicates that the RLQ/right groin pain has diminished. Maximum Temperature thru the night - 100.2; currently 99.4. other vital signs stable, pulse 88,respirations 16,blood pressure 161/72 CT and SBFT were personally reviewed with [facility]. The noted intussusception on CT was not present at the time of the SBFT. This increases the likelihood that the CT finding was incidental or artifact and has resolved. The pateint is tolerating clear liquids without nausea or vomiting the right groin was again examined - no masses, hernias, or lymphadenopathy detected. the CT demonstrated no inguinal or right lower quadrant The appendix was visualized and appeared normal per CT Chest x-ray completed last evening demonstrated no cardiopulmonary findings to explain the low-grade temp White count 7.3; hemoglobin stable at 13.2, hematocrit 39.5. electrolytes, BUN, creatinine remaine within normal limits C-reactive protein elevated at 48 - possibly due to recent surgery Recommendation: Regular diet may discharge home when medically stable patient to follow up with me in 1 week for recheck of the right groin pain. patient should follow up with Dr Hein for continued post op care recent robot assisted laparoscopic Toupet procedure. patient should have C-reactive protein rechecked next week. Objective Vital Signs - Last 8 Hours Temp Pulse Resp BP Pulse Ox 08/16/16 11:21 99.4 F 88 16 161/72 94 08/16/16 07:18 99.1 F 93 18 161/81 97 Intake and Output 08/15/16 08/16/16 08/16/16 23:59 07:59 15:59 Intake Total 237 / 237 1000 / 1000 0 / 0 Output Total 0 / 0 350 / 350 Balance 237 / 237 650 / 650 0 / 0 Intake: IV Fluids 1000 / 1000 D5% And 0.9% Nacl 1000 Ml 1000 / 1000 1,000 ML @ 75 mls/hr IVC .[id number] [facility] Rx#: [id number] Oral 237 / 237 0 / 0 0 / 0 Output: Urine 0 / 0 350 / 350 Other: Meal Breakfast Percent of Meal Consumed 0% Weight 79.2 kg Patient Weight 08/16/16 23:59 Weight 79.2 kg - Labs 08/16/16 05:33 08/16/16 05:33 Diabetes panel 08/16/16 Range/Units 05:33 Sodium 140 (136-145) mEq/L Potassium 3.7 (3.5-4.5) mEq/L Chloride 106 (98-109) mEq/L Carbon Dioxide 24 (19-29) mEq/L BUN 4 L (7-20) mg/dL Creatinine 0.70 (0.57-1.11) mg/dL Glucose 137 H (70-99) mg/dL Calcium 9.3 (8.6-10.8) mg/dL Calcium panel 08/16/16 Range/Units 05:33 Calcium 9.3 (8.6-10.8) mg/dL Pituitary panel 08/16/16 Range/Units 05:33 Sodium 140 (136-145) mEq/L Potassium 3.7 (3.5-4.5) mEq/L Chloride 106 (98-109) mEq/L Carbon Dioxide 24 (19-29) mEq/L BUN 4 L (7-20) mg/dL Creatinine 0.70 (0.57-1.11) mg/dL Glucose 137 H (70-99) mg/dL Calcium 9.3 (8.6-10.8) mg/dL Adrenal panel 08/16/16 Range/Units 05:33 Sodium 140 (136-145) mEq/L Potassium 3.7 (3.5-4.5) mEq/L Chloride 106 (98-109) mEq/L Carbon Dioxide 24 (19-29) mEq/L BUN 4 L (7-20) mg/dL Creatinine 0.70 (0.57-1.11) mg/dL Glucose 137 H (70-99) mg/dL Calcium 9.3 (8.6-10.8) mg/dL Consult Discharge Plan - Plan Referrals: Madelin Viera MD [Primary Care Provider] -
[2016-08-16] MEDS: *HR* Morphine 2 MG/ML SYRINGE IVP PRN (20:30)
[2016-08-17] MEDS: *HR* Morphine 2 MG/ML SYRINGE IVP PRN (02:08)
[2016-08-17 03:36] LABS: Basophils % 0.3 %; Eosinophils # 0.1 K/mcL (0.0-0.6); Eosinophils % 1.8 %; Hematocrit 36.6 % (35.3-44.9); Hemoglobin 11.9 g/dL (11.5-15.4); Immature Granulocytes % 0.3 % (0-4); Lymphocytes # 1.2 K/mcL (0.6-4.6); Lymphocytes % 18.6 %; Mean Corpuscular HGB Conc 32.5 g/dL (31.6-35.5); Mean Corpuscular Hemoglobin 29.9 pg (28.0-33.3); Mean Platelet Volume 10.2 fL (9.4-12.4); Monocytes # 0.8 K/mcL (0.0-1.3); Monocytes % 13.3 %; Neutrophils # 4.1 K/mcL (1.6-8.9); Platelet Count 211 K/mcL (140-400); Red Blood Count 3.98 M/mcL (3.82-4.97); Red Cell Distribution Width 12.7 % (11.5-14.5); Segmented Neutrophils % 65.7 %
[2016-08-17 03:56] LABS: BUN/Creatinine Ratio 7 (6-26); Carbon Dioxide 25 mEq/L (19-29); Chloride 108 mEq/L (98-109); Glucose 136 mg/dL (70-99); Magnesium 1.9 mg/dL (1.6-2.6); Osmolality,Calculated 291 (280-300); Potassium 3.4 mEq/L (3.5-4.5); Sodium 141 mEq/L (136-145); eGFR For African Americans > 60 (> 60); eGFR For Non-African Americans > 60 (> 60)
[2016-08-17 04:00] LABS: Blood Urea Nitrogen 5 mg/dL (7-20)
[2016-08-17 04:12] LABS: C-Reactive Protein 39 mg/L (Less than 5)
[2016-08-17 06:55] VITALS: BP 153/78
[2016-08-17] MEDS: Venlafaxine XR (24 HR) 150 MG CAP.ER.24H PO SCH (09:17)
[2016-08-17] MEDS: Levofloxacin 750 MG/150 ML 750 MG/150 ML BAG IVPB SCH (09:18)
--- NOTE | 2016-08-17 09:52 | Discharge Summary ---
Date of Encounter: 08/17/16 Time of Encounter: 09:15 - Discharge Diagnosis (1) Abdominal pain Priority: Primary Status: Acute Comments: Patient had mild right lower quadrant abdominal pain times of discharge. She was able to tolerate her regular diet and denied nausea or vomiting. She was flatulent on the discharge. (2) Spleen hematoma Priority: Primary Status: Acute Comments: Stable. Likely resultant from recent surgery. Follow-up outpatient. Qualifiers: Qualified Code(s): S36.029A - Unspecified contusion of spleen, initial encounter (3) Intussusception Priority: Primary Status: Ruled-out Comments: Results/ruled out. Small bowel follow-through unremarkable. Cleared by surgery for outpatient follow-up. Tolerated a regular diet prior to discharge. (4) GERD (gastroesophageal reflux disease) Priority: Secondary Status: Chronic Comments: Continue home Protonix. Patient denied current symptoms on day of discharge. Qualifiers: Esophagitis presence: esophagitis presence not specified Qualified Code(s) : K21.9 - Gastro-esophageal reflux disease without esophagitis (5) Nausea and vomiting Priority: Primary Status: Resolved Qualifiers: Vomiting type: unspecified Vomiting Intractability: non-intractable Qualified Code(s): R11.2 - Nausea with vomiting, unspecified (6) DVT prophylaxis Priority: Primary Status: Acute Comments: Observation patient. Up ad giorgio. IPCs (7) Fever Priority: Primary Status: Resolved - Discharge Medications Prescriptions: HYDROcodone/Acet 10/325 mg [Dana 10-325 mg] 1 tab PO Q6HR PRN #15 tab PRN Reason: Pain Ondansetron HCl 4 mg PO Q6H PRN #12 tablet PRN Reason: Nausea And Vomiting Home Medications: Pantoprazole Sodium [Protonix] 40 mg PO BID 04/09/16 [History] Venlafaxine XR (24 HR) [Effexor Xr] 150 mg PO DAILY 04/09/16 [History] Acetaminophen [Tylenol Arthritis] 650 mg PO BID 07/16/16 [History] HYDROcodone/Acet 10/325 mg [Dana 10-325 mg] 1 tab PO Q6HR PRN #15 tab 08/17/16 [Rx] Ondansetron HCl 4 mg PO Q6H PRN #12 tablet 08/17/16 [Rx] Allergies/Adverse Reactions: Allergies No Known Allergies Allergy (Verified 08/15/16 05:31) Date of admission: 08/15/16 10:41 Primary care physician: Madelin Viera Consults: 08/15/16 08:52 Consult to Surgery [CONS] Stat Consulting Provider: Roney Rutledge Reason for Consult: intussusception, abdominal pain s/p fundoplication Call Completed: No Discharging clinician: Kaitlynn Salomon Anticipated date of discharge: 08/17/16 - Patient Status Disposition: Home, Self-Care Condition: Fair Functional capacity at discharge: independent ambulation Overall status at discharge: patient is progressing back to baseline - Discharge Instructions Follow Up With: Madelin Viera MD [Primary Care Provider] - Roney Rutledge MD [Non-Partnered Physician] - Additional Instructions: Follow-up with primary care provider within one to 2 weeks, follow-up with surgery in one week - Diet and Activity Activity: increase activity as tolerated Diet: regular diet Hospital course: Ms. Landeros is a 61 year old female with past medical history of GERD, Guido fundoplication on 07/16/16. Patient was in her usual state of health until 2 days prior to presentation when she began to experience abdominal pain. She described the pain as across her lower abdomen, and crampy in nature. She continued to be flatulent and had a bowel movement 2 days prior to presentation. She denied vomiting but did endorse nausea. She denied fevers or chills, hemoptysis or melena. Abdominal CT in the emergency department consistent with possible intussusception without evidence of obstruction. CT also revealed splenic hematoma. Patient was admitted to the hospitalist service for further evaluation and management. Surgery was brought on board who felt that this intussusception was likely artifact as patient had a small bowel follow-through study that was unremarkable. Chest x-ray negative. Patient was admitted and observed over the course of 2 nights. She was able tolerate a regular diet prior to discharge. Surgery cleared her for outpatient follow-up. Splenic hematoma likely secondary to her recent surgery. She remained hemodynamically stable. No signs of infection, urine culture was negative. No leukocytosis. She was discharged home in stable condition with close outpatient follow-up recommended. She was sent home with ondansetron and short supply of narcotic pain medication, [facility] report checked out okay. ITS Impressions Abdomen/Pelvis CT 08/15/16 06:03 IMPRESSION: 1. Proximal small bowel intussusception without evidence of obstruction at this time. This is located at the junction of the duodenum and jejunum. 2. New small subcapsular hematoma involving the spleen. Clinical correlation is recommended as to recent fall/trauma or possible coagulopathy with spontaneous hemorrhage. No intraperitoneal hemorrhage is identified. This may be a subacute injury but is new from February 2016. 3. No other acute intra-abdominal or intrapelvic process. Specifically, no obstructive uropathy. D/ / Vincent Acuña MD / Vincent Acuña MD Interpreting Provider: Vincent Acuña MD Small Bowel X-Ray 08/16/16 00:01 IMPRESSION: No intussusception identified on small bowel follow-through, which was carried out to the distal small bowel. The visualized mucosal folds appear unremarkable. D/ / Kurt Urbina MD / Kurt Urbina MD Interpreting Provider: Kurt Urbina MD Chest X-Ray 08/16/16 19:44 IMPRESSION: Negative portable study. D/ / Jessica Hernandez Cha, MD / Jessica Hernandez Cha, MD Interpreting Provider: Jessica Hernandez Cha, MD - Time Spent with Patient Total time spent providing and/or coordinating discharge services: - Constitutional Vitals: Temp Pulse Resp BP Pulse Ox 98.0 F 65 16 153/78 99 08/17/16 06:54 08/17/16 06:54 08/17/16 06:54 08/17/16 06:54 08/17/16 06:54 General appearance: Present: A&O X 3, pleasant, no acute distress, answers questions appropriately - Head Head exam: Present: atraumatic, normocephalic - Eye Eye exam: Present: PERRL, conjuntiva pink, sclera anicteric Pupils: Present: PERRL - Neck Neck exam general surgery: Present: supple, trachea midline. Absent: lymphadenopathy - Respiratory Respiratory exam: Present: CTAB. Absent: accessory muscle use, rales, respiratory distress, rhonchi, wheezes - Cardiovascular Cardiovascular exam: Present: RRR, +S1, +S2. Absent: diastolic murmur, gallop, rubs, systolic murmur - GI/Abdominal GI/Abdominal exam: Present: normal bowel sounds, soft, tenderness, no peritoneal signs. Absent: distended - Extremities Exam Extremities exam: Present: warm, radial pulses palpable and symetrical. Absent : calf tenderness, cyanotic, pedal edema - Neurological Exam Neurological exam: Present: alert, CN II-XII intact, normal gait, oriented X3, no focal deficits, strengths equal and symetr throughout. Absent: pronater drift, facial droop, speech deficit - Skin Skin exam: Present: dry, intact, pallor, warm
== END 2016-08-17 10:20 | disposition home or self-care (01) ==
LOC: EMEROO 05:22 → 3BNU 05:22
PROVIDERS: ADMIT Hospitalist; ATTEND Nurse Practitioner Family